=== PATIENT | female | born 1945 | race Caucasian/White ===

== ENCOUNTER → 2024-02-09 16:26 | Outpatient (REF) | payer MEDICARE, SELFPAY | LOC: HWWDC 16:26 | PROVIDERS: ATTENDING PHYSICIAN Obstetrics & Gynecology; FAMILY PHYSICIAN Internal Medicine | DX: Z12.31 Encounter for screening mammogram for malignant neoplasm of breast (principal) | CPT/HCPCS: 77063; 77067 ==

== ENCOUNTER → 2024-08-15 09:16 | Outpatient (REF) | payer MEDICARE, SELFPAY | LOC: RCS 09:16 | PROVIDERS: ATTENDING PHYSICIAN Internal Medicine Cardiovascular Disease; FAMILY PHYSICIAN Internal Medicine | DX: I34.0 Nonrheumatic mitral (valve) insufficiency (principal); I10 Essential (primary) hypertension; I35.1 Nonrheumatic aortic (valve) insufficiency | CPT/HCPCS: 93306 ==

== ENCOUNTER → 2024-09-09 10:34 | Outpatient (REF) | payer MEDICARE, SELFPAY | LOC: HWRAD 10:34 | PROVIDERS: ATTENDING PHYSICIAN Internal Medicine | DX: R05.3 Chronic cough (principal); J18.9 Pneumonia, unspecified organism | CPT/HCPCS: 71046 ==

== ENCOUNTER 2024-10-03 06:23 | Day surgery (SDC) | payer MEDICARE, SELFPAY | END 2024-10-03 11:25 | disposition home or self-care (01) | LOC: GI 06:23 | PROVIDERS: ATTENDING PHYSICIAN Internal Medicine Gastroenterology | DX: Z12.11 Encounter for screening for malignant neoplasm of colon (principal); R19.5 Other fecal abnormalities; K57.30 Diverticulosis of large intestine without perforation or abscess without bleeding; K64.8 Other hemorrhoids; D12.5 Benign neoplasm of sigmoid colon; D12.4 Benign neoplasm of descending colon; D12.2 Benign neoplasm of ascending colon; D12.3 Benign neoplasm of transverse colon; D12.8 Benign neoplasm of rectum | CPT/HCPCS: 45385; 45381; 45380; 88305 ==

== ENCOUNTER → 2024-11-22 12:43 | Outpatient (REF) | payer MEDICARE, SELFPAY | LOC: HWRAD 12:43 | PROVIDERS: FAMILY PHYSICIAN Internal Medicine | DX: R10.2 Pelvic and perineal pain (principal) | CPT/HCPCS: 76830; 76856 ==

== ENCOUNTER 2024-12-06 06:24 | Day surgery (SDC) | payer MEDICARE, SELFPAY ==
[2024-12-06 11:14] VITALS: BMI 21.3
[2024-12-06 11:20] VITALS: BMI 21.3
[2024-12-06 11:35] VITALS: BP 158/93
[2024-12-06 14:15] VITALS: BP 133/63
[2024-12-06 14:30] VITALS: BP 143/68
== END 2024-12-06 15:03 | disposition home or self-care (01) ==
LOC: SDS 06:24
PROVIDERS: ATTENDING PHYSICIAN Internal Medicine Gastroenterology
DX: D12.2 Benign neoplasm of ascending colon (principal); D12.3 Benign neoplasm of transverse colon; K57.30 Diverticulosis of large intestine without perforation or abscess without bleeding; D12.8 Benign neoplasm of rectum; K64.0 First degree hemorrhoids
CPT/HCPCS: 45390; 88305

== ENCOUNTER → 2025-04-11 08:54 | Outpatient (REF) | payer MEDICARE, SELFPAY | LOC: RAD 08:54 | PROVIDERS: ATTENDING PHYSICIAN Internal Medicine | DX: R22.9 Localized swelling, mass and lump, unspecified (principal) | CPT/HCPCS: 71250; 76536 ==

== ENCOUNTER → 2025-05-22 06:34 | Outpatient (REF) | payer MEDICARE, SELFPAY | LOC: HWCARD 06:34 | PROVIDERS: ATTENDING PHYSICIAN Orthopaedic Surgery; FAMILY PHYSICIAN Internal Medicine | DX: Z01.818 Encounter for other preprocedural examination (principal) | CPT/HCPCS: 93005 ==

== ENCOUNTER 2025-06-07 06:25 | Day surgery (SDC) | payer MEDICARE, SELFPAY | END 2025-06-07 12:41 | disposition home or self-care (01) | LOC: GI 06:25 | PROVIDERS: ATTENDING PHYSICIAN Internal Medicine Gastroenterology | DX: K63.5 Polyp of colon (principal); R93.3 Abnormal findings on diagnostic imaging of other parts of digestive tract; K64.8 Other hemorrhoids; Z98.890 Other specified postprocedural states | CPT/HCPCS: 45331; 88305 ==

== ENCOUNTER 2025-06-27 09:02 | Emergency (ER) | payer MEDICARE, SELFPAY ==
[2025-06-27 09:15] VITALS: BP 188/94
[2025-06-27 10:13] VITALS: BP 149/71
[2025-06-27 10:20] VITALS: BP 149/71
[2025-06-27 10:54] LABS: Hematocrit 34.6 % (37.0-47.0); Hemoglobin 11.6 g/dL (12.0-16.0); Mean Corp Hgb Conc. 33.5 g/dL (33.0-37.0); Mean Corpuscular Volume 89.9 fL (81.0-99.0); Nucleated Red Blood Cells % 0 %; Platelet Count 320 10^3/uL (130-400); Red Cell Dist. Width 13.9 % (11.5-14.5)
[2025-06-27 11:04] LABS: ALT (SGPT) 15 U/L (0-35); AST (SGOT) 26 U/L (14-36); Albumin 4.0 g/dl (3.5-5.0); Alkaline Phosphatase 53 U/L (38-126); Blood Urea Nitrogen 24 mg/dl (7-17); Calcium 9.5 mg/dl (8.4-10.2); Carbon Dioxide 27 mmol/L (22-30); Chloride 105 mmol/L (98-107); Glucose 111 mg/dl (70-99); Potassium 4.6 mmol/L (3.5-5.1); Sodium 136 mmol/L (135-145); Total Protein 6.8 g/dl (6.3-8.2); eGFR > 60.00
[2025-06-27 11:12] LABS: Troponin I < 0.012 ng/ml
--- NOTE | 2025-06-27 11:13 | ED.GENMED ---
History of Present Illness
General
Chief Complaint: Chest Pain
Time Seen by Provider: 06/27/25 10:57
History of Present Illness
History of Present Illness:
80-year-old female with history of hypertension and hyperlipidemia presents to the emergency department for evaluation of sudden onset of left-sided chest pain that began last night while attempting to sleep. Symptoms unfortunately from sleeping
bed and she position herself on her left side when the pain began. It was 'most terrible pain' that lasted approximately 10 minutes before resolving. She has not had any pain since that time. Denies any associated shortness of breath, cough,
fever, chills, sweats, upper extremity paresthesias. She is 1 week status post right total knee replacement and is on prevention. Denies any significant discomfort at this time
Past History
Past History
ED Past Medical History: HTN and Hypercholesterolemia
ED Past Surgical History: Appendectomy
Social History
Tobacco: Non-smoker
Alcohol: None
Personal: Single
Review of Systems
Review of Systems
Allergies reviewed?: Yes
All Other Systems: ROS reviewed and negative except as documented in HPI and ROS
Phy Exam
Physical Exam
Physical Exam:
GEN: Well appearing, NAD, WDWN
HEENT: Oral mucosa moist, no scleral icterus
Cardiac: Regular rate and rhythm, no murmurs
Chest: No palpable deformities, no crepitus or ecchymosis, grossly nontender to palpation
Lung: No respiratory distress, no tachypnea, muscular auscultation bilaterally
MSK: No gross deformity or injuries. Status post right TKR, incision is well-approximated with no dehiscence or discharge, diffuse leg edema from the mid thigh to the foot compatible with recent surgery, nontender, calf compartments are soft x 4
Skin: Good color, no pallor or jaundice, no rashes
Neuro: AO x3, moves all extremities freely
Psych: Calm, cooperative
Scores
Heart Score for Chest Pain Patients
STEMI patient?: No
History: Slightly or Non-Suspicious
ECG: Normal
Age: >/= 65 years
Risk Factors: 1 or 2 Risk Factors
Troponin: </= Normal Limit
Heart Score for Chest Pain Patients: 3
Heart Score Risk: 2.5% MACE over next 6 weeks
Course
Orders/Labs/Results
Orders:
Orders
06/27/25 09:03
Electrocardiogram (*1) Urgent
Reason for Study: Chest Pain
EKG- Treatment ONCE
06/27/25 10:17
CR Chest - 2 Views Urgent
Comment:
Reason For Exam: chest pain
06/27/25 10:26
Complete Blood Count/With Diff Urgent
Comprehensive Metabolic Panel Urgent
Prothrombin Time Urgent
Troponin I Urgent
06/27/25 11:12
Venous Doppler Lwr Ext Rt [US Periph Venous LOWER Ext RT] Urgent
Comment:
Reason For Exam: R calf swelling post TKA
Abnormal Lab Results
06/27/25
10:26
RBC 3.85 L 10^6/uL
(4.20-5.40)
Hgb 11.6 L g/dL
(12.0-16.0)
Hct 34.6 L %
(37.0-47.0)
Absolute Neuts (auto) 7.6 H 10^3/uL
(1.4-6.5)
Absolute Monos (auto) 0.7 H 10^3/uL
(0.1-0.6)
Neutrophils % 77.1 H %
(42.2-75.2)
Lymphocytes % 14.4 L %
(20.5-51.1)
BUN 24 H mg/dl
(7-17)
Glucose 111 H mg/dl
(70-99)
06/27/25 10:26
06/27/25 10:26
Vital Signs
Initial and Last Documented VS:
Initial Vital Signs
Temp Pulse Resp BP Pulse Ox
98.5 F 78 16 188/94 99
06/27/25 09:15 06/27/25 09:15 06/27/25 09:15 06/27/25 09:15 06/27/25 09:15
Last Documented Vital Signs
Temp Pulse Resp BP Pulse Ox
98.5 F 72 12 149/71 99
06/27/25 09:15 06/27/25 12:15 06/27/25 12:15 06/27/25 10:20 06/27/25 12:15
MDM/Problems Addressed
MDM/Problems Addressed:
Doubt ACS given the abrupt nature of pain while moving in bed, given the resolution of symptoms since last night I have a low suspicion for pulmonary embolism particularly given negative DVT study in the right leg. Her labs are reassuring, EKG
nonischemic, chest x-ray clear. Likely musculoskeletal
Comment
Comment:
EKG independently interpreted by me shows normal sinus rhythm at a rate of [address] changes concerning for ischemia, intermittent PVCs noted
*Pulse Oximetry
SaO2: 97
Oxygen Mode of Delivery: Room air
Patient hypoxic: no
*Critical Care Note
Total Time (30-74mins, 75-104mins- exclusive of procedures): Not Applicable
ED Attending Note
-
Portions of this chart may have been created with voice recognition software.� Occasional wrong word or��sound alike� substitutions may have occurred due to the inherent limitations of voice recognition software.
Discharge Plan
Departure
Patient Disposition: Home (Routine Discharge)
Date of Disposition: 06/27/25
Time of Disposition: 12:20
Patient with high blood pressure during this ER visit?: No
Discharge Problem:
Atypical chest pain
Instructions: Chest Pain That Is Not Caused by the Heart (DC)
Prescriptions:
No Action
atorvastatin 40 MG tablet
40 mg PO QPM
ibuprofen [Advil Liqui-Gel] 200 MG capsule
200 mg PO PRN PRN (Reason: sciatica)
levothyroxine 25 MCG tablet
25 mcg PO DAILY
furosemide 20 MG tablet
20 mg PO DAILY
metoprolol succinate 25 MG tablet extended release 24 hr
12.5 mg PO DAILY Qty: 30 2RF
famotidine 20 mg Tablet
telmisartan 80 mg Tablet
80 mg PO DAILY
Referrals:
Valdo Hicks MD [Family Provider, Internal Medicine]
Activity Restrictions/Additional Instructions:
Your testing is all reassuring against a cardiac or lung related cause of your symptoms. I suspect this was a chest wall pain however do not hesitate to return if pain becomes more severe or sustained longer than what you experience last night
Interventions
Interventions:
*Risk Screen - Suicide Last Done: 06/27/25 09:15
*General Assessment Last Done: 06/27/25 09:15
*Neglect/Abuse Screening Last Done: 06/27/25 09:15
*ED- Fall Risk Assessment Last Done: 06/27/25 12:39
*ED COVID-19 Vaccine History Last Done: 06/27/25 10:27
*Nursing Disposition Last Done: 06/27/25 12:39
ED- Cardiac Assessment Last Done: 06/27/25 10:27
Discharge Date and Time
Discharge Date/Time: 06/27/25 12:39
Print Language: NEPALI
[2025-06-27 11:15] LABS: INR 0.90; PT 12.5 Sec (11.4-14.6)
== END 2025-06-27 12:39 | disposition home or self-care (01) ==
LOC: EMR 09:02
PROVIDERS: EMERGENCY PHYSICIAN Emergency Medicine; FAMILY PHYSICIAN Internal Medicine
DX: R07.89 Other chest pain (principal); R22.41 Localized swelling, mass and lump, right lower limb; I10 Essential (primary) hypertension; E78.00 Pure hypercholesterolemia, unspecified; Z90.49 Acquired absence of other specified parts of digestive tract; Z96.651 Presence of right artificial knee joint
CPT/HCPCS: 99285; 71046; 80053; 84484; 85025; 85610; 93005; 93971